=== PATIENT | female | born 1965 | race Caucasian/White ===

== ENCOUNTER 2022-06-21 09:38 | Emergency (ER) | payer SELFPAY ==
[2022-06-21] MEDS ORDERED: NA CHLORIDE 0.9% 500 ML ONE (10:28)
[2022-06-21 10:51] LABS: Absolute Lymphocytes (CBC) 2.3 K/uL (0.7-4.9); Lymphocytes % 20.4 % (15.3-44.8); MCV 87.9 fL (80-100); MPV 8.1 fL (7.6-11.3); RBC Red Blood Cell Count 5.24 M/uL (3.86-4.86)
[2022-06-21 10:55] LABS: Urine Blood Negative (Negative); Urine Glucose Negative (Negative); Urine Protein Negative (Negative); Urine Specific Gravity <=1.005 (1.005-1.030); Urine pH 6.5 (5.0-7.0)
--- NOTE | 2022-06-21 11:10 | RAD REPORT ---
EXAM DESCRIPTION: RAD - Chest Single View - 06/21/2022 10:20 am CLINICAL HISTORY: PALPITATIONS COMPARISON: None TECHNIQUE: AP portable chest image was obtained 06/21/2022 10:20 am . FINDINGS: Lung volumes are low. This accentuates interstitial pattern. No consolidation or mass. Min imal interstitial edema or infiltrate could be masked. Heart and vasculature are normal. No measurable pleural effusion and no pneumothorax. No acute bone findings seen. Degenerative change present at the left shoulder joint. Old rib trauma changes are crystal dent on the right. No acute aortic findings suspected. IMPRESSION: No acute cardiopulmonary process.
[2022-06-21 11:16] LABS: Urine Bacteria <20 /HPF (<20); Urine RBC <5 /HPF (None Seen)
[2022-06-21 11:18] LABS: Magnesium 2.3 mg/dL (1.8-2.4); Potassium 3.6 mmol/L (3.5-5.1); Thyroid Stimulating Hormone 2.48 uIU/mL (0.360-3.740); Troponin High Sensitivity 4.5 pg/mL (<58.9)
--- NOTE | 2022-06-21 11:49 | EDPHYS ---
Physician Documentation [facility] Name: Gill Sims Age: 57 yrs Sex: Female : 1965 Arrival Date: 06/21/2022 Time: 09:44 Bed 16 Private MD: ED Physician Oneal Garcia HPI: 06/21 10:36 This 57 yrs old Female presents to ER via EMS with complaints of Palpitations. rn 10:36 The patient presents with a history of heart racing. Context: The symptoms occur at rn rest. Onset: The symptoms/episode began/occurred yesterday. Duration: The patient or guardian reports multiple episodes. Modifying factors: The symptoms are aggravated by nothing. The symptoms are alleviated by nothing. Associated signs and symptoms: Pertinent negatives: cough, fever, syncope, vertigo. Severity of symptoms: At their worst the symptoms were moderate in the emergency department the symptoms have improved. The patient has experienced a previous episode. The patient has not recently seen a physician. Pt reports palpitations, began yesterday, not assoc with chest pain or sob. Has happened once before, had w/u, with heart monitor, no clear diagnosis per patient, put on atenolol, seemed to help but then was taken off due to concerns of medication interaction. Intermittent palpitations, last about 20-30 min. Recently switched from losartan to lisinopril. . Historical: - Allergies: 10:07 Metoprolol Tartrate; em6 10:07 Iodine; em6 - PMHx: 10:07 Hypertensive disorder; Diabetes mellitus; martin's palsy; em6 - PSHx: 10:07 Mastoidectomy; Total abdominal hysterectomy; em6 - Immunization history:: Adult Immunizations unknown. - Social history:: Smoking status: unknown. - Family history:: not pertinent. - Hospitalizations: : No recent hospitalization is reported. ROS: 10:36 Constitutional: Negative for fever, chills, and weight loss, Eyes: Negative for injury, rn pain, redness, and discharge, Neck: Negative for injury, pain, and swelling, Cardiovascular: Negative for chest pain, and edema, Respiratory: Negative for shortness of breath, cough, wheezing, and pleuritic chest pain, Abdomen/GI: Negative for abdominal pain, nausea, vomiting, diarrhea, and constipation, Back: Negative for injury and pain, MS/Extremity: Negative for injury and deformity, Skin: Negative for injury, rash, and discoloration, Neuro: Negative for headache, weakness, numbness, tingling, and seizure. Exam: 10:36 Constitutional: This is a well developed, well nourished patient who is awake, alert, rn and in no acute distress. Head/Face: Normocephalic, atraumatic. Cardiovascular: Tachycardic, regular Respiratory: No increased work of breathing, no retractions or nasal flaring. Abdomen/GI: Soft, non-tender Skin: Warm, dry MS/ Extremity: Pulses equal, no cyanosis. Neuro: Awake and alert, GCS 15, oriented to person, place, time, and situation. Cranial nerves II-XII grossly intact. Motor strength 5/5 in all extremities. Sensory grossly intact. Cerebellar exam normal. Normal gait. 11:05 ECG was reviewed by the Attending Physician. rn Vital Signs: 09:45 BP 144 / 86; Pulse 110; Resp 17; Temp 97.8; Pulse Ox 98% ; Pain 0/10; em6 11:00 BP 141 / 87; Pulse 99; Resp 19; Pulse Ox 97% on R/A; em6 12:00 BP 134 / 72; Pulse 99; Resp 15; Pulse Ox 99% on R/A; em6 MDM: 09:50 Patient medically screened. rn 11:48 Differential diagnosis: arrythmia, dehydration, stress disorder. Data reviewed: vital rn signs, nurses notes, lab test result(s), EKG, radiologic studies, plain films, and as a result, I will discharge patient. Counseling: I had a detailed discussion with the patient and/or guardian regarding: the historical points, exam findings, and any diagnostic results supporting the discharge/admit diagnosis, lab results, radiology results, the need for outpatient follow up, to return to the emergency department if symptoms worsen or persist or if there are any questions or concerns that arise at home. Response to treatment: the patient's symptoms have markedly improved after treatment, the patient's condition has returned to base line, the patient is now symptom free, and as a result, I will discharge patient. Special discussion: I discussed with the patient/guardian in detail that at this point there is no indication for admission to the hospital. It is understood, however, that if the symptoms persist or worsen the patient needs to return immediately for re-evaluation. 06/21 10:03 Order name: Basic Metabolic Panel; Complete Time: 11:20 rn 06/21 10:03 Order name: CBC with Diff; Complete Time: 11: rn 06/21 10:03 Order name: D-Dimer; Complete Time: 11:20 rn 06/21 10:03 Order name: Magnesium; Complete Time: 11: rn 06/21 10:03 Order name: NT PRO-BNP; Complete Time: 11: rn 06/21 10:03 Order name: Troponin HS; Complete Time: 11: rn 06/21 10:03 Order name: XRAY Chest (1 view) rn 06/21 10:03 Order name: EKG; Complete Time: 10: rn 06/21 10:03 Order name: TSH; Complete Time: : rn 06/21 10:03 Order name: T4 Free; Complete Time: 11: rn 06/21 10:03 Order name: Urine Microscopic Only; Complete Time: : rn 06/21 10:55 Order name: Urine Dipstick-Ancillary; Complete Time: 11:20 EDMS 06/21 11:10 Order name: RAD; Complete Time: 11:20 EDMS 06/21 10:03 Order name: Cardiac monitoring; Complete Time: 10:12 rn 06/21 10:03 Order name: EKG - Nurse/Tech; Complete Time: 10: rn 06/21 10:03 Order name: IV Saline Lock; Complete Time: 10:12 rn 06/21 10:03 Order name: Labs collected and sent; Complete Time: 10:55 rn 06/21 10:03 Order name: O2 Per Protocol; Complete Time: 10: rn 06/21 10:03 Order name: O2 Sat Monitoring; Complete Time: 10:12 rn 06/21 10:03 Order name: Urine Dipstick-Ancillary (obtain specimen); Complete Time: 10:55 rn EC:05 Rate is 105 beats/min. Rhythm is regular. QRS [place] is Normal. ME interval is normal. rn QRS interval is normal. QT interval is normal. No Q waves. T waves are Normal. No ST changes noted. Clinical impression: Sinus tachycardia. Interpreted by me. Reviewed by me. Administered Medications: 10:44 Drug: NS 0.9% 500 ml Route: IV; Rate: bolus; Site: left hand; em6 12:36 Follow up: IV Status: Completed infusion; IV Intake: 1000ml em6 Disposition Summary: 06/21/22 11:49 Discharge Ordered Location: Home rn Problem: new rn Symptoms: have improved rn Condition: Stable rn Diagnosis - Tachycardia, unspecified rn Followup: rn - With: Private Physician - When: As needed - Reason: Recheck today's complaints, Re-evaluation by your physician Discharge Instructions: - Discharge Summary Sheet rn - Sinus Tachycardia rn Forms: - Medication Reconciliation Form rn - Thank You Letter rn - Antibiotic director of government sales - Prescription Opioid Use rn Prescriptions: - Atenolol 25 mg Oral Tablet - take 1 tablet by ORAL route once daily; 15 tablet; Refills: 0, Product rn Selection Permitted Signatures: Dispatcher [employer] Oneal Cevallos MD MD rn Martinez, Erika, RN RN em6
--- NOTE | 2022-06-21 11:49 | ER ---
Nurse's Notes [facility] Name: Gill Sims Age: 57 yrs Sex: Female : 1965 Arrival Date: 06/21/2022 Time: 09:44 Bed 16 Private MD: Diagnosis: Tachycardia, unspecified Presentation: 06/21 09:45 Chief complaint: EMS states: "patient reports increase heart palpations on 06/20/22 that em6 started at night. today in the morning the palpations became more constant. She reports taking a new medication which she believes are the reason of her palpations. the new med is lisinopril. started NS and an IV 20 G in the left hand" patient was tachycardic in the 110-120's while EMS ride". Coronavirus screen: At this time, the client does not indicate any symptoms associated with coronavirus-19. Ebola Screen: Patient negative for fever greater than or equal to 101.5 degrees Fahrenheit, and additional compatible Ebola Virus Disease symptoms. Initial Sepsis Screen: Does the patient meet any 2 criteria? HR > 90 bpm. No. Patient's initial sepsis screen is negative. Does the patient have a suspected source of infection? No. Patient's initial sepsis screen is negative. Risk Assessment: Do you want to hurt yourself or someone else? Patient reports no desire to harm self or others. Onset of symptoms was June 21, 2022. 09:45 Method Of Arrival: EMS: [facility] em6 09:45 Acuity: DAVE 3 em6 Triage Assessment: 09:45 General: Appears in no apparent distress. comfortable, Behavior is calm, cooperative, em6 appropriate for age. 09:45 Pain: Denies pain. 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 - Social history:: Smoking status: unknown. - Family history:: not pertinent. - Hospitalizations: : No recent hospitalization is reported. Screenin:45 Abuse screen: Denies threats or abuse. Nutritional screening: No deficits noted. em6 Tuberculosis screening: No symptoms or risk factors identified. Fall Risk IV access (20 points). Total Madsen Fall Scale indicates No Risk (0-24 pts). Assessment: 09:45 General: Appears in no apparent distress. comfortable, Behavior is calm, cooperative, em6 appropriate for age. Pain: Denies pain. Neuro: [place] Agitation-Sedation Scale (RASS): 0 - Alert and Calm Level of Consciousness is awake, alert, obeys commands, Oriented to person, place, time, situation. Cardiovascular: Heart tones present Capillary refill < 3 seconds Patient's skin is warm and dry. Rhythm is sinus rhythm Parent/caregiver reports patient has had palpations. Respiratory: Airway is patent Respiratory effort is even, unlabored, Respiratory pattern is regular, symmetrical, Breath sounds are clear bilaterally. GI: No signs and/or symptoms were reported involving the gastrointestinal system. : No signs and/or symptoms were reported regarding the genitourinary system. EENT: No signs and/or symptoms were reported regarding the EENT system. Derm: No signs and/or symptoms reported regarding the dermatologic system. Musculoskeletal: Circulation, motion, and sensation intact. Range of motion: intact in all extremities. 10:48 Reassessment: Patient appears in no apparent distress at this time. No changes from em6 previously documented assessment. Patient and/or family updated on plan of care and expected duration. Pain level reassessed. Patient is alert, oriented x 3, equal unlabored respirations, skin warm/dry/pink. 12:00 Reassessment: Patient appears in no apparent distress at this time. No changes from em6 previously documented assessment. Patient is alert, oriented x 3, equal unlabored respirations, skin warm/dry/pink. Patient states feeling better. Vital Signs: 09:45 BP 144 / 86; Pulse 110; Resp 17; Temp 97.8; Pulse Ox 98% ; Pain 0/10; em6 11:00 BP 141 / 87; Pulse 99; Resp 19; Pulse Ox 97% on R/A; em6 12:00 BP 134 / 72; Pulse 99; Resp 15; Pulse Ox 99% on R/A; em6 ED Course: 09:44 Patient arrived in ED. em1 09:45 Patient has correct armband on for positive identification. Bed in low position. Call em6 light in reach. Side rails up X 1. clinical research monitor on. Pulse ox on. NIBP on. Warm blanket given. 09:50 Oneal Garcia MD is Attending Physician. rn 10:06 Triage completed. em6 10:07 Arm band placed on right wrist. em6 10:20 Edmond Elias, RN is Primary Nurse. jd3 12:42 No provider procedures requiring assistance completed. IV discontinued, intact, em6 bleeding controlled, No redness/swelling at site. Pressure dressing applied. Administered Medications: 10:44 Drug: NS 0.9% 500 ml Route: IV; Rate: bolus; Site: left hand; em6 12:36 Follow up: IV Status: Completed infusion; IV Intake: 1000ml em6 Medication: 10:12 VIS not applicable for this client. em6 Intake: 12:36 IV: 1000ml; Total: 1000ml. em6 Outcome: 11:49 Discharge ordered by MD. rn 12:43 Discharged to home ambulatory. em6 12:43 Condition: stable 12:43 Discharge instructions given to patient, Instructed on discharge instructions, follow up and referral plans. medication usage, Demonstrated understanding of instructions, follow-up care, medications, Prescriptions given X 1. 12:43 Patient left the ED. em6 Signatures: Oneal Garcia MD MD rn Martinez, Eric em1 Edmond Elias, RN RN Monique Linares RN RN em6
[2022-06-21 13:39] VITALS: TEMP 97.8
[2022-06-21 13:43] VITALS: BP 134/72; O2SAT 99
--- NOTE | 2022-06-22 12:50 | EKG ---
Test Date: 2022-06-21 Test Time: 09:47:15 Data Collector: MEASUREMENT RESULTS: Intervals: Rate: 105 NC: 158 QRSD: 82 QT: 372 QTc: 491 [place]: P: 42 NC: 158 QRS: 48 T: 1 INTERPRETIVE STATEMENTS: Sinus tachycardia Septal infarct, age undetermined Abnormal ECG No previous ECG available for comparison Electronically Signed On 06-22-22 12:49:35 CDT by Levar Morris
== END 2022-06-21 12:43 | disposition home or self-care (01) ==
LOC: ER 09:38
DX: R00.0 Tachycardia, unspecified (principal); E11.9 Type 2 diabetes mellitus without complications; I10 Essential (primary) hypertension; Z88.8 Allergy status to other drugs, medicaments and biological substances; Z91.048 Other nonmedicinal substance allergy status
CPT/HCPCS: 36415; 71045; 80048; 81003; 81015; 83735; 83880; 84439; 84443; 84484; 85025; 85379; 93005; 96360; 96361; 99284; J7040